=== PATIENT | male | born 1960 ===

== ENCOUNTER → 2023-01-28 16:46 | Outpatient (CLI) | payer OTHER, SELFPAY ==
--- NOTE | 2023-01-28 13:25 | DI.CT_ITS ---
Exam(s) CT LOWER EXTREMITY RT WO EXAM: CT LOWER EXTREMITY RT WO CLINICAL HISTORY: PAIN RT KNEE, M25.561, MILD SWELLING,MEDIAL INSTABILITY,HEARD SNAP. TECHNIQUE: Imaging Protocol: Axial computed tomography images with coronal and sagittal reformatted images were created and reviewed. COMPARISON: No exams were available for comparison FINDINGS: Bones: The osseous structures and articular surfaces are intact. Bony alignment is satisfactory. T here are enthesophytes at the superior and inferior anterior patella and at the tibial tuberosity. T here is no evidence of joint space narrowing or cystic degeneration seen. No lytic or sclerotic lesio ns are identified. Soft Tissues: There is a 1.7 x 5.4 cm popliteal cyst. There is no significant joint effusion. No lo ose bodies are present. The muscles show no significant fatty atrophy. IMPRESSION: 1. There is no acute fracture or dislocation. 2. 1.7 x 5.4 cm popliteal cyst. 3. If there is concern for internal derangement, an MRI should be considered for further evaluation. RADIATION DOSE DELIVERED: Total DLP Total DLP DATA REPOSITORY: All CT scans at this facility are submitted to the National Radiology Data Registry (NRDR) Dose Index Registry (DIR) with the [employer] ([employer]). RADIATION OPTIMIZATION: All CT scans at this facility use at least one of these dose optimization te chniques: automated exposure control; mA and/or kV adjustment per patient size (includes targeted exa ms where dose is matched to clinical indication); or iterative reconstruction.
== END ==
PROVIDERS: Visit Provider Nurse Practitioner Adult Health
DX: M25.561 Pain in right knee (principal)
CPT/HCPCS: 73700